=== PATIENT | male | born 1985 | race Caucasian/White ===

== ENCOUNTER 2016-11-29 15:02 | Emergency (ER) | payer BC ==
[~2016-11-29] VITALS: Ht 175.3 cm; Wt 85.5 kg
[2016-11-29 15:07] VITALS: Ht 175.3 cm; Wt 85.5 kg
--- NOTE | 2016-11-29 16:02 | ERD ---
ER Documentation Chief Complaint Chief Complaint Complains of left flank pain x 1 week HPI 31 year old ge comes in with left flank pain worsening for a week but has had this pain for a month. The patient has achy pain that is sharp and intermittent , mild on the left flank. The patient states he had an ultrasound done that was normal, as well as a urine test that was normal. Patient states he has a history of right-sided testicular cancer which was treated with surgical removal and therefore has had some anxiety over the symptoms on his left flank. Patient denies any fevers or chills or constitutional symptoms. ROS All systems reviewed and are negative except as per history of present illness. Allergies Allergies: Coded Allergies: Penicillins (Verified Allergy, Unknown, 08/27/12) PMhx/Soc History of Surgery: No Anesthesia Reaction: No Hx Neurological Disorder: Yes (gets seisure like activity when he drinks) Hx Respiratory Disorders: No Hx Cardiac Disorders: No Hx Psychiatric Problems: No Hx Miscellaneous Medical Probl: No Hx Alcohol Use: Yes (3-4x per week( 2 glasses of whisky per day when he drinks) ) Hx Substance Use: No Hx Tobacco Use: No (quit this 02/16/12) Physical Exam Vitals Vital Signs Date Time Temp Pulse Resp B/P Pulse Ox O2 Delivery O2 Flow Rate FiO2 11/29/16 15:07 98.3 88 20 110/66 98 Physical Exam General: Well-developed, well-nourished. The patient appears in no acute distress. HEENT: Head is normocephalic, atraumatic. No scleral icterus. Neck: Supple. Nontender. Lungs: Clear to auscultation. Normal air movement. Heart: Regular rate and rhythm. S1 and S2 are normal. No murmurs, gallops, or rubs. Abdomen: Soft, nontender, nondistended. Bowel sounds are normoactive. No CVA tenderness. No rashes. Extremities: No clubbing or cyanosis. Normal pulses. Moving extremities x 4. No weakness. Neurologic: Alert and oriented 3. No focal deficits. Skin: Normal turgor. No rash or lesions. Result Diagram: 11/29/16 1542 11/29/16 1542 Results 24 hrs Laboratory Tests Test 11/29/16 15:42 11/29/16 15:50 White Blood Count 6.910^3/ul Red Blood Count 4.6110^6/ul Hemoglobin 14.9g/dl Hematocrit 43.9% Mean Corpuscular Volume 95.2fl Mean Corpuscular Hemoglobin 32.3pg Mean Corpuscular Hemoglobin Concent 33.9g/dl Red Cell Distribution Width 13.1% Platelet Count 08645^3/UL Mean Platelet Volume 10.2fl Neutrophils % 68.8% Lymphocytes % 17.5% Monocytes % 5.5% Eosinophils % 6.9% Basophils % 1.0% Nucleated Red Blood Cells % 0.0/100WBC Neutrophils # 4.810^3/ul Lymphocytes # 1.210^3/ul Monocytes # 0.410^3/ul Eosinophils # 0.510^3/ul Basophils # 0.110^3/ul Nucleated Red Blood Cells # 0.010^3/ul Sodium Level 145mmol/L Potassium Level 3.9mmol/L Chloride Level 102mmol/L Carbon Dioxide Level 30mmol/L Anion Gap 17 Blood Urea Nitrogen 14mg/dl Creatinine 0.98mg/dl Glucose Level 73mg/dl Calcium Level 10.1mg/dl Total Bilirubin 0.7mg/dl Direct Bilirubin 0.00mg/dl Indirect Bilirubin 0.7mg/dl Aspartate Amino Transf (AST/SGOT) 66IU/L Alanine Aminotransferase (ALT/SGPT) 98IU/L Alkaline Phosphatase 92IU/L Total Protein 8.1g/dl Albumin 4.9g/dl Globulin 3.20g/dl Albumin/Globulin Ratio 1.53 Lipase 106U/L Urine Color STRAW Urine Clarity CLEAR Urine pH 6.0 Urine Specific Exmore 1.009 Urine Ketones NEGATIVEmg/dL Urine Nitrite NEGATIVEmg/dL Urine Bilirubin NEGATIVEmg/dL Urine Urobilinogen NEGATIVEmg/dL Urine Leukocyte Esterase NEGATIVELeu/ul Urine Hemoglobin NEGATIVEmg/dL Urine Glucose NEGATIVEmg/dL Urine Total Protein NEGATIVEmg/dl DIAGNOSTIC IMAGING REPORT Patient: SHAR RICARDO : 1985 Age: 31 Sex: M MR #: [id number] DOS: 11/29/16 1531 Ordering MD: DUSTIN AGUIAR PA-C Location: [facility] Room/Bed: PROCEDURE: CT abdomen and pelvis without contrast. CLINICAL INDICATION: Left flank pain for 1 month TECHNIQUE: CT scan of the abdomen and pelvis without contrast was performed. Sagittal and coronal reformatted images were obtained from the axial source images. One or more of the following dose reduction techniques were used: Automated exposure control, adjustment of the mA and/or kV according to patient size, use of iterative reconstruction technique. CTDI = 12.34 mGy; DLP = 650.94 mGy-cm COMPARISON: None available. FINDINGS: Visualized lower thorax: The lung bases are clear. There is no evidence for pleural effusion. Liver, gallbladder, pancreas and spleen: The liver is normal and size, contour and attenuation. There is no evidence for a liver mass or ductal dilatation. The gallbladder is contracted but otherwise unremarkable. No common bile duct abnormality is demonstrated. The pancreas is unremarkable. The spleen is normal in size. Adrenal glands and genitourinary system: The adrenal glands are normal bilaterally. The kidneys are normal and size, contour and attenuation with no evidence for masses, calculi or hydronephrosis. 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 No urinary bladder abnormality is demonstrated. The prostate gland is normal in size. The scrotum is not included in the field of view. Gastrointestinal system: The stomach is normal in caliber with no abnormality of significance. The small bowel is normal in caliber with no ileus, obstruction or wall thickening. The appendix and surrounding fat are within the limits of normal. The colon shows no evidence for wall thickening or acute abnormality. There is no evidence for colitis or diverticulitis. Peritoneum, retroperitoneum, lymph nodes and vessels: The abdominal aorta is normal in caliber. There is no evidence for atherosclerotic calcification. The inferior vena cava is unremarkable. There is no evidence for adenopathy or mass. There is no ascites. Osseous structures and musculoskeletal findings: There is no fracture, lytic or blastic lesion. No muscular abnormality or soft tissue pathology is present. Metallic clips in the right inguinal region are presumably from previous herniorrhaphy. There is no evidence of recurrent hernia RPTAT:HJJR IMPRESSION: 1. No evidence of acute intra-abdominal or intrapelvic pathology, there are no findings of explain the patient's provided history. 2. Incidental duplicated left renal collecting system without evidence of urinary tract calculus or hydronephrosis. 3. Changes in the right inguinal region presumably from previous herniorrhaphy. Surgical history correlation is suggested. Garrick Fry Physician Date Time Electronically viewed and signed by Garrick Fry Physician on 11/29/2016 18:21 JR/ CC: DUSTIN AGUIAR PA-C Procedures/MDM 30-year-old male presents with left-sided flank pain ongoing for a month, worsening over the last week, differentials include a new mass, UTI, pyelonephritis, kidney stones, pancreatitis, hydronephrosis. CT abdomen pelvis shows duplication of the renal collecting system on the left side, no findings to explain the patient's history or pain. Pain is most likely musculoskeletal. He was advised to change posture at work, take ibuprofen as needed for pain and do stretches. He may follow-up with nephrology or urology outpatient. Departure Diagnosis: Primary Impression: Flank pain Condition: Good DUSTIN AGUIAR PA-C Nov 29, 2016 16:02
[2016-11-29 16:07] LABS: BASOPHIL # 0.1 10^3/ul (0.0-0.1); EOSINOPHILS # 0.5 10^3/ul (0.0-0.5); EOSINOPHILS % 6.9 % (0.0-7.0); HEMATOCRIT 43.9 % (42.0-52.0); HEMOGLOBIN 14.9 g/dl (14.0-18.0); LYMPHOCYTES # 1.2 10^3/ul (0.8-2.9); LYMPHOCYTES % 17.5 % (15.0-51.0); MEAN CORPUSCULAR HEMOGLOBIN 32.3 pg (29.0-33.0); MEAN CORPUSCULAR HGB CONC 33.9 g/dl (32.0-37.0); MEAN CORPUSCULAR VOLUME 95.2 fl (82.0-101.0); MEAN PLATELET VOLUME 10.2 fl (7.4-10.4); MONOCYTE # 0.4 10^3/ul (0.3-0.9); MONOCYTES % 5.5 % (0.0-11.0); NEUTROPHIL # 4.8 10^3/ul (1.6-7.5); NEUTROPHILS % 68.8 % (39.0-77.0); PLATELET COUNT 315 10^3/UL (140-415); RED BLOOD COUNT 4.61 10^6/ul (4.70-6.10); RED CELL DISTRIBUTION WIDTH 13.1 % (11.5-14.5); WHITE BLOOD COUNT 6.9 10^3/ul (4.8-10.8)
[2016-11-29 16:10] LABS: ADD UMIC NO; UR ASCORBIC ACID NEGATIVE (NEGATIVE); UR BILIRUBIN (Dip) NEGATIVE (NEGATIVE); UR BLOOD (Dip) NEGATIVE (NEGATIVE); UR CLARITY CLEAR (CLEAR); UR COLOR STRAW (YELLOW); UR GLUCOSE (Dip) NEGATIVE (NEGATIVE); UR KETONES (Dip) NEGATIVE (NEGATIVE); UR LEUKOCYTE ESTERASE (Dip) NEGATIVE Leu/ul (NEGATIVE); UR NITRITE (Dip) NEGATIVE (NEGATIVE); UR SPECIFIC GRAVITY (Dip) 1.009 (1.003-1.030); UR TOTAL PROTEIN (Dip) NEGATIVE (NEGATIVE); UR UROBILINOGEN (Dip) NEGATIVE (NEGATIVE)
[2016-11-29 16:30] LABS: ALBUMIN 4.9 g/dl (3.3-4.9); ALBUMIN/GLOBULIN RATIO 1.53; BILIRUBIN,INDIRECT 0.7 mg/dl (0-1.1); BILIRUBIN,TOTAL 0.7 mg/dl (0.2-1.3); CALCIUM 10.1 mg/dl (8.4-10.2); CREATININE 0.98 mg/dl (0.61-1.24); POTASSIUM 3.9 mmol/L (3.5-5.1); TOTAL PROTEIN 8.1 g/dl (6.1-8.1)
--- NOTE | 2016-11-29 18:21 | RADRPT ---
PROCEDURE: CT abdomen and pelvis without contrast. CLINICAL INDICATION: Left flank pain for 1 month TECHNIQUE: CT scan of the abdomen and pelvis without contrast was performed. Sagittal and coronal reformatted images were obtained from the axial source images. One or more of the following dose re duction techniques were used: Automated exposure control, adjustment of the mA and/or kV according t o patient size, use of iterative reconstruction technique. CTDI = 12.34 mGy; DLP = 650.94 mGy-cm COMPARISON: None available. FINDINGS: Visualized lower thorax: The lung bases are clear. There is no evidence for pleural effusion. Liver, gallbladder, pancreas and spleen: The liver is normal and size, contour and attenuation. Th ere is no evidence for a liver mass or ductal dilatation. The gallbladder is contracted but otherwi se unremarkable. No common bile duct abnormality is demonstrated. The pancreas is unremarkable. T he spleen is normal in size. Adrenal glands and genitourinary system: The adrenal glands are normal bilaterally. The kidneys are normal and size, contour and attenuation with no evidence for masses, calculi or hydronephrosis. 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 No uri nary bladder abnormality is demonstrated. The prostate gland is normal in size. The scrotum is not included in the field of view. Gastrointestinal system: The stomach is normal in caliber with no abnormality of significance. The small bowel is normal in caliber with no ileus, obstruction or wall thickening. The appendix and s urrounding fat are within the limits of normal. The colon shows no evidence for wall thickening or acute abnormality. There is no evidence for colitis or diverticulitis. Peritoneum, retroperitoneum, lymph nodes and vessels: The abdominal aorta is normal in caliber. The re is no evidence for atherosclerotic calcification. The inferior vena cava is unremarkable. There is no evidence for adenopathy or mass. There is no ascites. Osseous structures and musculoskeletal findings: There is no fracture, lytic or blastic lesion. No muscular abnormality or soft tissue pathology is present. Metallic clips in the right inguinal salo on are presumably from previous herniorrhaphy. There is no evidence of recurrent hernia RPTAT:HJJR IMPRESSION: 1. No evidence of acute intra-abdominal or intrapelvic pathology, there are no findings of explain t he patient's provided history. 2. Incidental duplicated left renal collecting system without evidence of urinary tract calculus or hydronephrosis. 3. Changes in the right inguinal region presumably from previous herniorrhaphy. Surgical history co rrelation is suggested. Physician Suleman Date Time Electronically viewed and signed by Garrick Fry Physician on 11/29/2016 18:21 JR/
[2016-11-29 18:45] VITALS: BP 121/66; PULSE 66; RESP 20; TEMP 98.7
== END 2016-11-29 18:47 | disposition home or self-care (01) ==
LOC: FTE 15:02
DX: R10.9 Unspecified abdominal pain (principal); Z85.47 Personal history of malignant neoplasm of testis; Z87.891 Personal history of nicotine dependence
CPT/HCPCS: 36415; 74176; 80053; 81003; 83690; 85025

== ENCOUNTER 2018-05-02 01:22 | Emergency (ER) | payer BC ==
[~2018-05-02] VITALS: Wt 80.0 kg
[2018-05-02] MEDS ORDERED: SOD CHLORIDE 0.9% 1,000 ML IV STA (01:28)
--- NOTE | 2018-05-02 03:01 | ERD ---
ER Documentation Chief Complaint Chief Complaint bib ra from home for near syncope, from home, diarrhea, no bleeding HPI 32-year-old history of insulin dependent diabetes who presents to the emergency room for an episode of near syncope. The patient describes approximate 24 hours of intermittent paresthesias. He feels that intermittently his hands are swollen and feet are swollen but not currently. Patient has had 1-2 episodes of looser stool. His sugars have been slightly elevated in the 100 200 range but not above 300. Patient states that just prior to arrival he started to feel lightheaded and felt like he might pass out. He did not lose consciousness. No prodrome of headache chest pain or shortness of breath. Patient feels better currently. ROS All systems reviewed and are negative except as per history of present illness. Allergies Allergies: Coded Allergies: Penicillins (Verified Allergy, Unknown, 08/27/12) PMhx/Soc History of Surgery: Yes (testicular ) Anesthesia Reaction: No Hx Neurological Disorder: No Hx Respiratory Disorders: No Hx Cardiac Disorders: No Hx Psychiatric Problems: No Hx Miscellaneous Medical Probl: Yes (testicular cancer) Hx Alcohol Use: Yes (occasional) Hx Substance Use: No Hx Tobacco Use: No (quit this 02/16/12) Smoking Status: Never smoker FmHx Family History: No diabetes Physical Exam Vitals Vital Signs Date Temp Pulse Resp B/P (MAP) Pulse Ox O2 O2 Flow FiO2 Time Delivery Rate 05/02/18 98.7 77 19 110/75 100 Room Air 01:30 (87) 05/02/18 98.7 70 19 108/78 100 01:24 (88) Physical Exam General: Well developed, well nourished, no acute distress Head: Normocephalic, atraumatic. Eyes: Pupils equally reactive, EOM intact ENT: Moist mucous membranes Neck: Supple, no lymphadenopathy Respiratory: Lungs clear bilaterally, no distress Cardiovascular: RRR, no murmurs, rubs, or gallops Abdominal: Soft, non-tender, non-distended, no peritoneal signs : Deferred MSK: No edema, no unilateral swelling, 5/5 strength Neurologic: Alert and oriented, moving all extremities, normal speech, no focal weakness, no cerebellar signs Skin: No rash Psych: Normal mood Result Diagram: 05/02/18 0147 05/02/18146 Results 24 hrs Laboratory Tests Test 05/02/18 01:45 05/02/18 01:47 Bedside Glucose 224 mg/dL White Blood Count 4.7 10^3/ul Red Blood Count 3.11 10^6/ul Hemoglobin 11.4 g/dl Hematocrit 33.5 % Mean Corpuscular Volume 107.7 fl Mean Corpuscular Hemoglobin 36.7 pg Mean Corpuscular Hemoglobin Concent 34.0 g/dl Red Cell Distribution Width 12.7 % Platelet Count 254 10^3/UL Mean Platelet Volume 10.2 fl Immature Granulocytes % 0.200 % Neutrophils % 65.4 % Lymphocytes % 19.6 % Monocytes % 8.4 % Eosinophils % 5.3 % Basophils % 1.1 % Nucleated Red Blood Cells % 0.0 /100WBC Immature Granulocytes # 0.010 10^3/ul Neutrophils # 3.1 10^3/ul Lymphocytes # 0.9 10^3/ul Monocytes # 0.4 10^3/ul Eosinophils # 0.3 10^3/ul Basophils # 0.1 10^3/ul Nucleated Red Blood Cells # 0.0 10^3/ul Sodium Level 142 mmol/L Potassium Level 3.8 mmol/L Chloride Level 108 mmol/L Carbon Dioxide Level 28 mmol/L Anion Gap 6 Blood Urea Nitrogen 17 mg/dl Creatinine 0.96 mg/dl Est Glomerular Filtrat Rate mL/min > 60 mL/min Glucose Level 209 mg/dl Calcium Level 8.9 mg/dl Current Medications Medications Dose Sig/Devante Start Time Status Last (Trade) Ordered Route PRN Stop Time Admin Dose Reason Admin Sodium 1,000 ml @ Q1H STAT 05/02/18 DC Chloride 1,000 mls/hr IV 01:28 05/02/18 02:27 Procedures/MDM EKG, MONITORS, & DIAGNOSTIC IMAGING: Patient refused EKG LAB INTERPRETATION: I reviewed the laboratory testing and it shows mild hyperglycemia but no evidence of diabetic ketoacidosis MEDICAL DECISION MAKING: Patient presents with nonspecific paresthesias and an episode of near syncope possibly vasovagal. Blood pressure in the field was slightly low but normal upon arrival. Patient otherwise has a benign exam. His laboratory testing shows no evidence of diabetic ketoacidosis only mild hyperglycemia. The patient exhibits no signs or symptoms concerning for serious etiology of near syncope or syncope. No signs of acute coronary syndrome, low concern for arrhythmia. No evidence of headache chest pain to suggest PE or intracranial hemorrhage. ER COURSE: * Patient received IV fluids and blood pressure remained stable. He refused EKG. * At this point there is no indication for inpatient hospitalization or prolonged observation. The patient can be safely discharged with primary care follow-up. Return precautions were discussed and understood. CONSULTATION: None DISPOSITION PLAN: The patient does not have an identifiable emergent medical condition that warrants inpatient hospitalization at this time. The patient is deemed safe for discharge with outpatient follow-up. We discussed follow up with the patient's primary care doctor within 24 to 48 hours as needed. We also discussed return to the emergency room for worsening symptoms or worsening condition. Outpatient referral: None required Discharge Medications: None required Departure Diagnosis: Primary Impression: Near syncope Additional Impression: Paresthesia Condition: Stable Patient Instructions: Near Syncope, Unknown, Paraesthesias Referrals: [facility] YOU HAVE RECEIVED A MEDICAL SCREENING EXAM AND THE RESULTS INDICATE THAT YOU DO NOT HAVE A CONDITION THAT REQUIRES URGENT TREATMENT IN THE EMERGENCY DEPARTMENT. FURTHER EVALUATION AND TREATMENT OF YOUR CONDITION CAN WAIT UNTIL YOU ARE SEEN IN YOUR DOCTORS OFFICE WITHIN THE NEXT 1-2 DAYS. IT IS YOUR RESPONSIBILITY TO MAKE AN APPOINTMENT FOR FOLOW-UP CARE. IF YOU HAVE A PRIMARY DOCTOR --you should call your primary doctor and schedule an appointment IF YOU DO NOT HAVE A PRIMARY DOCTOR YOU CAN CALL OUR PHYSICIAN REFERRAL HOTLINE AT IF YOU CAN NOT AFFORD TO SEE A PHYSICIAN YOU CAN CHOSE FROM THE FOLLOWING [facility] [address] [facility] [address] [facility] [place] [address] [facility] [address] [facility] [address] [facility]. [facility] [address] [facility]. [facility] YOU HAVE RECEIVED A MEDICAL SCREENING EXAM AND THE RESULTS INDICATE THAT YOU DO NOT HAVE A CONDITION THAT REQUIRES URGENT TREATMENT IN THE EMERGENCY DEPARTMENT. FURTHER EVALUATION AND TREATMENT OF YOUR CONDITION CAN WAIT UNTIL YOU ARE SEEN IN YOUR DOCTORS OFFICE WITHIN THE NEXT 1-2 DAYS. IT IS YOUR RESPONSIBILITY TO MAKE AN APPOINTMENT FOR FOLOW-UP CARE. IF YOU HAVE A PRIMARY DOCTOR --you should call your primary doctor and schedule and appointment IF YOU DO NOT HAVE A PRIMARY DOCTOR YOU CAN CALL OUR PHYSICIAN REFERRAL HOTLINE AT . IF YOU CAN NOT AFFORD TO SEE A PHYSICIAN YOU CAN CHOSE FROM THE FOLLOWING [facility] INSTITUTIONS: [facility] [address] [place] [address] [facility] [address] [place], [place] [id number] [place] [address] [address] [place] [address] Additional Instructions: Call your primary care doctor TOMORROW for an appointment during the next 1 WEEK.Tell the strategic partnership specialist that you were referred from this facility.See the doctor sooner or return here if your condition worsens before your appointment time. MANSI POLO MD May 02, 2018 03:01
[2018-05-02 03:06] VITALS: BP 115/76; PULSE 79; RESP 18
== END 2018-05-02 03:06 | disposition home or self-care (01) ==
LOC: E/R 01:22
DX: R55 Syncope and collapse (principal); E11.9 Type 2 diabetes mellitus without complications; R20.2 Paresthesia of skin; Z79.4 Long term (current) use of insulin; Z85.47 Personal history of malignant neoplasm of testis
CPT/HCPCS: 36415; 80048; 82962; 85025; 99284; J7030